=== PATIENT | female | born 2000 | race Two or more races ===

== ENCOUNTER 2023-10-09 19:40 | Emergency (ER) | payer SELFPAY ==
[~2023-10-09] VITALS: Ht 157.5 cm; Wt 54.4 kg
[2023-10-09 20:53] VITALS: BP 147/76; TEMP 97.7; O2SAT 100
[2023-10-09] MEDS ORDERED: ONDANSETRON 4 MG TAB.RAPDIS ONE (21:24)
[2023-10-09] MEDS: ONDANSETRON 4 MG TAB.RAPDIS SL ONE (21:25)
== END 2023-10-09 22:15 | disposition left against medical advice (07) ==
LOC: ER 20:13
DX: M54.2 Cervicalgia (principal); Y04.8XXA Assault by other bodily force, initial encounter; Y93.89 Activity, other specified; Y92.89 Other specified places as the place of occurrence of the external cause; Y99.8 Other external cause status
CPT/HCPCS: 99283; Q0162